=== PATIENT | female | born 1985 | race Caucasian/White ===

== ENCOUNTER 2018-04-24 13:41 | Emergency (ER) | payer MEDICAID ==
[2018-04-24 14:14] VITALS: BP 101/74
--- NOTE | 2018-04-24 15:06 | XRAY Report ---
Reason: L foot twist last night Procedure Date: 04/24/2018 Accession Number: [id number] / [id number] Procedure: XR - Foot 3 View LT CPT Code: FULL RESULT: EXAM: LEFT FOOT RADIOGRAPHY EXAM DATE: 04/24/2018 02:40 PM. CLINICAL HISTORY: L foot twist last night. Pain centered approximately at the area of the third cuboid. COMPARISON: None. TECHNIQUE: 3 views. FINDINGS: Bones: Very small linear ossific density along the lateral margin of the distal calcaneus, near the calcaneal cuboid joint margin could represent a small avulsion fracture fragment. Clinical correlation is recommended. No other evidence of fracture or bone lesion. Joints: Normal. No subluxations. Soft Tissues: Normal. No soft tissue swelling. IMPRESSION: 1. Small ossification lateral to the distal calcaneus could represent a small evulsion fracture. Clinical correlation recommended. 2. No other evidence of fracture. RADIA
--- NOTE | 2018-04-24 15:35 | ED Physician Documentation ---
PD HPI LOWER EXT INJURY - Stated complaint Stated Complaint: L FOOT INJ - Chief complaint Chief Complaint: Ext Problem - History obtained from History obtained from: Patient - History of Present Illness PD HPI LOW EXT INJURY LOCATION: Left, Foot Type of injury: Fall (fall down 1 stair), Twist Where injury occurred: Home Timing - onset: Last night Timing - duration: Hours (12) Timing - details: Abrupt onset Pain level max: 7 Pain level now: 4 Improved by: Rest Worsened by: Moving, Palpating, Other (walking) Associated symptoms: No: Weakness, Numbness, Tingling Similar symptoms before: Has not had sx before Recently seen: Not recently seen Review of Systems Constitutional: denies: Fever, Chills Throat: denies: Sore throat Respiratory: denies: Cough Skin: denies: Rash Neurologic: denies: Headache PD PAST MEDICAL HISTORY - Past Medical History Past Medical History: No - Past Surgical History 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 - Present Medications Home Medications: Ambulatory Orders Medication Instructions Recorded Confirmed Duloxetine HCl [Cymbalta] 04/24/18 Methadone 04/24/18 buPROPion [Wellbutrin Xl] 04/24/18 - Allergies Allergies/Adverse Reactions: Allergies Allergy/AdvReac Type Severity Reaction Status Date / Time No Known Drug Allergies Allergy Verified 04/24/18 14:14 - Social History Does the pt smoke?: No Smoking Status: Never smoker Does the pt drink ETOH?: No Does the pt have substance abuse?: No - Immunizations Immunizations are current?: Yes PD ED PE NORMAL - Vitals Vital signs reviewed: Yes - General General: Alert and oriented X 3, No acute distress - HEENT HEENT: Moist mucous membranes - Neck Neck: Supple, no meningeal sign - Derm Derm: Warm and dry - Extremities Extremities: Other (L foot - TTP dorsum of the L foot. No tenderness at the base of the L 5th MTP. or lateral calcaneus. ) - Neuro Neuro: Alert and oriented X 3 Results - Vitals Vitals: Vital Signs - 24 hr 04/24/18 14:10 Temperature 37 C Heart Rate 76 Respiratory 16 Rate Blood Pressure 101/74 O2 Saturation 98 Oxygen O2 Source Room air - Rads (name of study) L foot xray Radiology: Prelim report reviewed, EMP read contemporaneously, See rad report (Small ossification lateral to the distal calcaneus could represent a small evulsion fracture. Clinical correlation recommended. 2. No other evidence of fracture. ) PD MEDICAL DECISION MAKING - ED course Complexity details: reviewed results, re-evaluated patient, considered differential, d/w patient ED course: 32-year-old female with a foot sprain. Placed in a postoperative shoe for comfort. Ambulating well, given crutches to help remove weight from the foot. The small ossification is likely an old abnormality, she has no tenderness at this point clinically. Patient counseled regarding signs and symptoms for which I believe and urgent re-evaluation would be necessary. Patient with good understanding of and agreement to plan and is comfortable going home at this time This document was made in part using voice recognition software. While efforts are made to proofread this document, sound alike and grammatical errors may occur. Departure - Departure Disposition: 01 Home, Self Care Clinical Impression: Sprain of foot, left Qualifiers: Encounter type: initial encounter Qualified Code(s): S93.602A - Unspecified sprain of left foot, initial encounter Condition: Good Instructions: ED Sprain Foot Follow-Up: MIRTA MUELLER [Primary Care Provider] - Within 1 week Comments: Wear the postoperative shoe as needed for comfort. Return if you worsen. Follow-up with your doctor for further evaluation and care. You may bear weight as tolerated. Discharge Date/Time: 04/24/18 15:49
== END 2018-04-24 15:49 | disposition home or self-care (01) ==
LOC: ED 13:41
DX: S93.602A Unspecified sprain of left foot, initial encounter (principal); W10.9XXA Fall (on) (from) unspecified stairs and steps, initial encounter; Y93.01 Activity, walking, marching and hiking; Y92.009 Unspecified place in unspecified non-institutional (private) residence as the place of occurrence of the external cause
CPT/HCPCS: 99282; 99283

== ENCOUNTER 2019-07-01 19:05 | Outpatient (CLI) | payer MEDICAID | END 2019-07-01 19:06 | disposition EMS.NT | LOC: EMS 19:05 | PROVIDERS: ATTEND Surgery | DX: R56.9 Unspecified convulsions (principal) ==